=== PATIENT | female | born 1990 | race Asian ===

== ENCOUNTER 2025-04-13 15:32 | Outpatient (CLI) | payer MEDICAID ==
--- NOTE | 2025-04-13 16:24 | RADIOLOGY REPORT ---
CLINICAL HISTORY: TENSION-TYPE HEADACHE TECHNIQUE: Helical scanning was performed of the head from the skull base to the vertex. Multiplanar reconstructions were performed. This exam was performed according to our departmental dose optimizat ion program. Up-to-date CT equipment and radiation dose reduction techniques are utilized as appropri ate. CTDI 44.6 DLP 720.7 COMPARISON: CT CT SINUS on DOS: 04/13/25 FINDINGS: There is no evidence for acute intracranial hemorrhage, acute ischemic changes, mass, mass effect, or extra-axial fluid collection. There is no hydrocephalus or midline shift. There is no effacement of the cerebral sulci and basal subarachnoid cisterns. The becker-white matter differentiation is well izzy ntained. 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 The imaged paranasal sinuses mild right maxillary sinus microsol thickening macrito. There is mild bi lateral ethmoid air some microsol thickening. IMPRESSION: NO ACUTE INTRACRANIAL ABNORMALITY SEEN. CHIARI 1 MALFORMATION. MILD RIGHT MAXILLARY SINUS MICROSOL THICKENING WITH SECRETIONS. PLEASE CORRELATE FOR SINUSITIS.
--- NOTE | 2025-04-13 16:33 | RADIOLOGY REPORT ---
CT CT SINUS Indication: ACUTE FRONTAL SINUSITIS EXAM DATE: 04/13/2025 04:04 PM COMPARISON: None TECHNIQUE: CT of the paranasal sinuses without intravenous contrast. RADIATION DOSE: CTDIvol: 55 mGy, DLP: 701 mGy*cm FINDINGS: Frontal sinus well pneumatized. Bilateral maxillary sinus mucosal thickening, [id number]-left . More pronounced opacification of the right maxillary sinus Mucosal thickening of the ethmoids. Nasal septum midline. Sphenoid sinus septum slightly deviated to the left. The mastoids are well pneumatized. Orbits, retrobulbar spaces unremarkable. IMPRESSION: Paranasal sinus disease most pronounced within the right maxillary sinus.
== END 2025-04-13 23:59 | disposition home or self-care (01) ==
LOC: RAD 15:32
PROVIDERS: ATTEND Family Medicine
DX: G93.5 Compression of brain (principal); J01.10 Acute frontal sinusitis, unspecified; J34.89 Other specified disorders of nose and nasal sinuses; G44.209 Tension-type headache, unspecified, not intractable
CPT/HCPCS: 70450; 70486